=== PATIENT | male | born 1960 | race Caucasian/White ===

== ENCOUNTER 2023-08-06 07:05 | Day surgery (SDC) | payer BC, SELFPAY ==
[2023-08-06] VITALS (8 sets, daily range): BP systolic 106–154; BP diastolic 60–82; BMI 25.7
--- NOTE | 2023-08-06 09:08 | ITS.CL.IMPLP ---
[employer] - Implant Loop
Implant Loop
Procedure Report:
Date of Procedure: August 06, 2023.
Procedure: Insertable Loop Recorder Explant.
Indication: Loop at the end of service.
Performing physician: Reji Sadler MD, [facility].
Explant: [employer] Reveal Linq; Model# LNQ11; Serial# [id number] (implanted 03/16/2017).
Technique: A time out was performed per protocol. The patient was prepped and draped in the usual fashion. Anesthesia was administered by the anesthesia staff. Local anesthetic was applied to the left prepectoral subcutaneous tissue. An incision
was made over the superior aspect of the device. Dissection was carried to the capsule. The capsule was entered. The old device was explanted. The pocket appeared normal. Hemostasis was excellent. The pocket was irrigated saline. The incision was
closed with 4-0 Monocryl suture. The skin was closed with steri-strips. The estimated blood loss was less than 0.5 mL. There were no complications. No fluoroscopy was used.
Conclusion: Uncomplicated insertable loop explantation.
Recommendation: Routine incision care.
cc: Saqib Byrd MD and Duglas Yao DO.
== END 2023-08-06 10:15 | disposition home or self-care (01) ==
LOC: CATH 07:05
PROVIDERS: ATTENDING PHYSICIAN Internal Medicine Cardiovascular Disease; FAMILY PHYSICIAN Family Medicine; OTHER PHYSICIAN Internal Medicine Cardiovascular Disease
DX: Z09 Encounter for follow-up examination after completed treatment for conditions other than malignant neoplasm (principal); Z86.73 Personal history of transient ischemic attack (TIA), and cerebral infarction without residual deficits; I08.0 Rheumatic disorders of both mitral and aortic valves; I10 Essential (primary) hypertension; E78.5 Hyperlipidemia, unspecified; R73.9 Hyperglycemia, unspecified; Z95.1 Presence of aortocoronary bypass graft; Z95.2 Presence of prosthetic heart valve; Z87.891 Personal history of nicotine dependence; Z79.01 Long term (current) use of anticoagulants
CPT/HCPCS: 33286

== ENCOUNTER → 2024-09-28 15:05 | Outpatient (REF) | payer BC, SELFPAY | LOC: RCS 15:05 | PROVIDERS: ATTENDING PHYSICIAN Internal Medicine Cardiovascular Disease; FAMILY PHYSICIAN Family Medicine | DX: Z95.2 Presence of prosthetic heart valve (principal); I10 Essential (primary) hypertension; Q87.89 Other specified congenital malformation syndromes, not elsewhere classified | CPT/HCPCS: 93306 ==

== ENCOUNTER → 2024-09-30 08:45 | Outpatient (REF) | payer BC, SELFPAY ==
[2024-09-30 10:23] LABS: ALT (SGPT) 26 U/L (0-50); AST (SGOT) 28 U/L (17-59); Albumin 4.3 g/dl (3.5-5.0); Alkaline Phosphatase 47 U/L (38-126); Blood Urea Nitrogen 18 mg/dl (9-20); Calcium 9.4 mg/dl (8.4-10.2); Carbon Dioxide 30 mmol/L (22-30); Chloride 107 mmol/L (98-107); Glucose 89 mg/dl (70-99); HDL Cholesterol 45 mg/dl; LDL Cholesterol, Calculated 91 mg/dl; Potassium 4.5 mmol/L (3.5-5.1); Sodium 144 mmol/L (135-145); Total Bilirubin 0.9 mg/dl (0.2-1.3); Total Cholesterol 159 mg/dl (50-199); Total Protein 6.3 g/dl (6.3-8.2); Triglyceride 119 mg/dl (10-149); Very Low Density Lipoprotein 23 mg/dl (0-30); eGFR > 60.00
== END ==
LOC: REG 08:45
PROVIDERS: ATTENDING PHYSICIAN Internal Medicine Cardiovascular Disease; FAMILY PHYSICIAN Family Medicine
DX: I10 Essential (primary) hypertension (principal); E78.5 Hyperlipidemia, unspecified
CPT/HCPCS: 36415; 80053; 80061

== ENCOUNTER → 2024-10-02 15:37 | Outpatient (REF) | payer BC, SELFPAY | LOC: RAD 15:37 | PROVIDERS: ATTENDING PHYSICIAN Internal Medicine Cardiovascular Disease; FAMILY PHYSICIAN Family Medicine | DX: I71.21 Aneurysm of the ascending aorta, without rupture (principal); R93.1 Abnormal findings on diagnostic imaging of heart and coronary circulation | CPT/HCPCS: 71275; Q9967 ==

== ENCOUNTER → 2025-05-03 08:26 | Outpatient (REF) | payer BC, SELFPAY | LOC: RAD 08:26 | PROVIDERS: ATTENDING PHYSICIAN Thoracic Surgery (Cardiothoracic Vascular Surgery); FAMILY PHYSICIAN Family Medicine; OTHER PHYSICIAN Internal Medicine Cardiovascular Disease | DX: I48.91 Unspecified atrial fibrillation (principal) | CPT/HCPCS: 71275; 93880; Q9967 ==

== ENCOUNTER → 2025-05-15 09:10 | Outpatient (REF) | payer BC, SELFPAY | LOC: HWRCS 09:10 | PROVIDERS: ATTENDING PHYSICIAN Thoracic Surgery (Cardiothoracic Vascular Surgery); FAMILY PHYSICIAN Family Medicine | DX: I48.91 Unspecified atrial fibrillation (principal) | CPT/HCPCS: 93306 ==